=== PATIENT | female | born 1995 | race Caucasian/White ===

== ENCOUNTER 2019-03-26 15:30 | Outpatient (RCR) | payer BC | END 2019-05-25 | disposition still patient (30) | LOC: MKS.ESL.PT | DX: N94.19 Other specified dyspareunia (principal) ==

== ENCOUNTER → 2019-07-21 | Outpatient (CLI) | payer BC | LOC: MC.RAD 14:15 | DX: N60.19 Diffuse cystic mastopathy of unspecified breast (principal) ==

== ENCOUNTER → 2019-07-25 | Outpatient (CLI) | payer BC | LOC: MC.RAD 13:00 | DX: N60.11 Diffuse cystic mastopathy of right breast (principal) ==

== ENCOUNTER → 2020-03-20 | Emergency (ER) | payer BC | LOC: COL.ER 16:24 | DX: R69 Illness, unspecified (principal); Z53.21 Procedure and treatment not carried out due to patient leaving prior to being seen by health care provider ==

== ENCOUNTER 2020-03-21 08:05 | Emergency (ER) | payer BC ==
[~2020-03-21] VITALS: Ht 165.1 cm; Wt 60.0 kg
[2020-03-21 08:11] VITALS: TEMP 99.6
[2020-03-21 09:07] LABS: BASO % 0.4 % (0.0-2.0); EOS % 0.9 % (0-4.0); HEMATOCRIT 39.6 % (37.0-47.0); HEMOGLOBIN 13.4 g/dl (12.5-16.0); LYMPH % 41.5 % (20.0-51.0); MEAN CELL VOLUME 96 fl (80.0-100.0); MEAN CORPUSCULAR HEMOGLOBIN 32 pg (27.0-31.0); MEAN CORPUSCULAR HGB CONC 34 g/dl (33.0-37.0); MEAN PLATELET VOLUME 10.2 fl (7.4-10.4); MONO # 0.3 (0.1-0.6); MONO % 11.8 % (1.7-9.3); PLATELET COUNT 238 K/mm3 (130-400); RED BLOOD COUNT 4.13 M/mm3 (4.10-5.30); REDCELL DISTRIBUTION WIDTH-CV 12.4 % (11.5-14.5)
[2020-03-21 09:20] LABS: ALANINE AMINOTRANSFERASE 20 U/L (4-34); ALBUMIN 4.8 gm/dL (3.5-5.0); ALKALINE PHOSPHATASE 51 U/L (50-136); ANION GAP 9 mmol/L (7-16); AST,SGOT 24 U/L (15-37); BILIRUBIN,TOTAL 0.4 mg/dL (0.0-1.0); BLOOD UREA NITROGEN 16 mg/dL (7-17); CARBON DIOXIDE 26 mmol/L (22-30); CHLORIDE 103 mmol/L (98-107); CREATININE, serum 0.85 (0.52-1.25); GLUCOSE 95 mg/dL (74-106); LIPASE 49 U/L (23-300); POTASSIUM 4.2 mmol/L (3.4-5.0); SODIUM 138 mmol/L (137-145); TOTAL PROTEIN 8.1 gm/dL (6.4-8.2)
[2020-03-21 09:23] LABS: C-REACTIVE PROTEIN < 0.5 mg/dL (0.0-0.9)
[2020-03-21 09:24] LABS: COLLECTION METHOD CLEAN CATCH
[2020-03-21 09:33] LABS: PH 7 (5-8); URINE APPEARANCE Clear; URINE BACTERIA None Seen /hpf; URINE BILIRUBIN Negative (NEGATIVE); URINE BLOOD Negative (NEGATIVE); URINE COLOR Straw; URINE GLUCOSE Negative (NEGATIVE); URINE KETONE Negative (NEGATIVE); URINE LEUKOCYTE ESTERASE Negative (NEGATIVE); URINE NITRATE Negative (NEGATIVE); URINE PROTEIN(semi-quant) Negative (NEGATIVE); URINE RBC 0-2 /hpf; URINE UROBILINOGEN Negative (NEGATIVE)
[2020-03-21 10:45] VITALS: BP 112/67; PULSE 84
== END 2020-03-21 10:48 | disposition home or self-care (01) ==
LOC: COL.ER 08:05
PROVIDERS: Emergency Medicine
DX: U07.1 COVID-19 (principal); Z32.02 Encounter for pregnancy test, result negative; Z91.040 Latex allergy status

== ENCOUNTER → 2020-11-29 | Outpatient (CLI) | payer BC | LOC: MC.RAD 08:53 | DX: D24.1 Benign neoplasm of right breast (principal) ==

== ENCOUNTER → 2020-12-08 | Outpatient (CLI) | payer BC, OTHER | LOC: COL.RAD 09:48 | DX: G43.909 Migraine, unspecified, not intractable, without status migrainosus (principal) ==

== ENCOUNTER → 2022-06-12 | Outpatient (CLI) | payer BC | LOC: DIA.ED 08:38 | DX: O24.419 Gestational diabetes mellitus in pregnancy, unspecified control (principal) | CPT/HCPCS: G0108 ==

== ENCOUNTER 2022-07-08 08:18 | Outpatient (CLI) | payer BC ==
[~2022-07-08] VITALS: Ht 165.1 cm; Wt 79.1 kg
--- NOTE | 2022-07-08 08:30 | NUR ---
Pt arrived on unit via wheelchair with concerns for spotting and cramping last night with episodes of diarrhea. Pt denies any regular contractions, leaking of fluid or vaginal bleeding that requires to wear a pad and reports normal movement. Pt does reports one episode of pink discharge last night and one episode brown discharge this morning while wiping. EFM and toco monitors started. Vital signs WNL. Dr. Desir on unit. FHR tracing and records reviewed. Ok to discharge home if SVE is closed.
[2022-07-08] MEDS ORDERED: PRENATAL (08:44)
[2022-07-08] MEDS ORDERED: ZOLOFT 50MG50 MG PO (08:44)
[2022-07-08] MEDS ORDERED: ZYRTEC5 MG PO (08:45)
[2022-07-08] MEDS ORDERED: NATURAL IRON65 MG (08:45)
--- NOTE | 2022-07-08 09:05 | NUR ---
SVE done by this RN closed/thick/high. Plan for discharge home reviewed with pt and at the bedside. Both verbalized an understanding.
[2022-07-08 09:06] VITALS: BP 114/67; PULSE 75; TEMP 97.9
== END 2022-07-08 09:15 | disposition home or self-care (01) ==
LOC: LDRO 08:18 → LDR 08:30 → LDRO 09:15
DX: O26.853 Spotting complicating pregnancy, third trimester (principal); O62.9 Abnormality of forces of labor, unspecified; Z3A.34 34 weeks gestation of pregnancy
CPT/HCPCS: OP

== ENCOUNTER 2022-07-13 10:43 | Outpatient (CLI) | payer BC ==
[~2022-07-13] VITALS: Ht 165.1 cm; Wt 78.2 kg
[~2022-07-13 10:43] MED LIST: NATURAL IRON65 MG; PRENATAL; ZOLOFT 50MG50 MG PO; ZYRTEC5 MG PO
[2022-07-13 11:30] VITALS: BP 113/67; PULSE 88; TEMP 98.2
--- NOTE | 2022-07-13 11:30 | NUR ---
Pt called this morning and speaks to this RN. Pt complains of leaking fluid in the "middle of the night". Pt states she called the office but has not received a call back. Pt denies leaking any additional fluid since then. Denies UCs. +FM. Pt states she had a similar gush of fluid on Sunday, was seen in the office on Sunday and her water was not broken. Encouraged Pt to put on a peripad and monitor for additional fluid. Pt is certain the fluid was not urine. Pt encouraged to come to the hospital to be examined. Pt verbalizes underatanding. At approximately 1030 Pt's called the unit, spoke to Lucius Salazar, states they were just seen at [facility]. They said she was not ruptured. They are convienced the fluid was not urine and want to come to hospital to be evaluated. Encouraged to come to hospial if concerned. verbalizes understanding. 1050- Pt arrives on unit via wheel chair with complaints of SROM. Pt taken to room by lucius, Pt encouraged to give urine sample and change into gown. 1056- This RN to bedside. Pt into bed. EFM and TOCO on and tracing well. O2 sat monitor on and tracing maternal HR. Pt states that "in the middle of the night" she had a gush of fluid in bed. It was clear and and odorless. Pt retold story from Sunday and this morning. Assessments completed. Pt denies VB, LOF currently, or UCs. +FM per Pt. 1114- Amniotrace test, Pt encouraged to cough hard, negative, no color change. ROM + collected using same technique, collected per packaging instructions. SVE by this RN Closed/thick/high. Discussed plan of care. Questions answered and discussed.
[2022-07-13 11:41] LABS: COLLECTION METHOD CLEAN CATCH
[2022-07-13 11:52] LABS: URINE APPEARANCE Hazy (CLEAR/HAZY); URINE BACTERIA Rare /hpf (NONE SEEN); URINE COLOR Yellow (YELLOW); URINE RBC 0-2 /hpf (0-2)
[2022-07-13 11:53] LABS: PH 6.5 (5.0-8.5); URINE BLOOD Negative (NEGATIVE); URINE GLUCOSE TRACE (NEGATIVE); URINE KETONE Negative (NEGATIVE); URINE NITRATE Negative (NEGATIVE); URINE PROTEIN(semi-quant) Negative (NEGATIVE); URINE UROBILINOGEN 0.2 E.U/dL (0.2-1.0)
[2022-07-13 12:00] VITALS: BP 114/68; PULSE 82
[2022-07-13 12:30] VITALS: BP 99/66; PULSE 83
--- NOTE | 2022-07-13 12:30 | NUR ---
1218- RN to bedside, updated that ROM+ was negative and Urine test was WNL. Dr Clark is on unit and wants to perform a bedside US. Pt up to void. 1224- Dr Clark and this RN to bedside US performed. MD reports that pockets of fluid are present, no measurements taken. talks to Pt and extensively, questions answered. Plan to do US tomorrow in the office. Pt and reassured.
--- NOTE | 2022-07-13 13:00 | NUR ---
1300- EFM and TOCO off. Pt up to change into street clothes. Denies questions at this time. 1310- Discharge paperwork explained. Labor precautions and when to return to hospital discussed. Pt and Spouse deny questions. Pt taken off unit via wheelchair by . states "She walks too slow."
== END 2022-07-13 13:10 | disposition home or self-care (01) ==
LOC: LDRO 10:43
PROVIDERS: Obstetrics & Gynecology
DX: Z34.93 Encounter for supervision of normal pregnancy, unspecified, third trimester (principal); Z3A.35 35 weeks gestation of pregnancy

== ENCOUNTER 2022-07-14 05:46 | Outpatient (CLI) | payer BC ==
[~2022-07-14] VITALS: Ht 172.7 cm; Wt 80.4 kg
[2022-07-14 06:15] VITALS: BP 117/64; PULSE 87; TEMP 98
--- NOTE | 2022-07-14 06:15 | NUR ---
0550: Pt transported onto unit, via wheelchair, accompanied by pt spouse. Pt oriented to LDR3 and changed into exam gown. 0557: Pt on external monitors x2. VS obtained. Pt reports "I am here for leaking of AF. I have a pad there I wore because I was leaking so much." Pt denies vaginal bleeding and reports "have not felt much ctx. I also have not felt my baby in a while now." POC discussed with pt. Amnioswab conducted, negative for AF. Amnioswab conducted on pt pad, negative for AF. ROMPlus conducted and sent down to laboratory. 0604: SVE, with pt consent and explanation, C/T/H. 0633: This nurse notified Dr. Clark, via phonecall, of pt progress. See physician notification for further information.
[2022-07-14 06:30] VITALS: BP 105/64; PULSE 67
[2022-07-14 07:00] VITALS: BP 109/71; PULSE 82
[2022-07-14 07:30] VITALS: BP 110/66; PULSE 78
[2022-07-14 08:09] VITALS: BP 113/65; PULSE 68
--- NOTE | 2022-07-14 08:19 | NUR ---
0800 - Dr. Clark to bedside. Speculum exam done. Amnitrace swab negative. Swab done and sample placed on microscope slide, taken to lab by Dr. Clark. Pt repositioned for comfort. 0817 - Ultrasound to bedside for ordered growth sono and BPP
--- NOTE | 2022-07-14 08:55 | NUR ---
Per Dr. Clark, pt told him the electronic plotting system operator said fluid looked good, so pt may go home. He will follow up with her later.
[2022-07-14 09:04] VITALS: BP 115/66; PULSE 88; TEMP 98.2
== END 2022-07-14 09:15 | disposition home or self-care (01) ==
LOC: LDRO 05:46
DX: O42.913 Preterm premature rupture of membranes, unspecified as to length of time between rupture and onset of labor, third trimester (principal); Z3A.35 35 weeks gestation of pregnancy

== ENCOUNTER 2022-07-28 07:04 | Outpatient (CLI) | payer BC ==
[~2022-07-28] VITALS: Ht 165.1 cm; Wt 81.4 kg
[2022-07-28] MEDS ORDERED: SINGULAIR 110 MG/TAB PO (07:34)
[2022-07-28 07:35] VITALS: BP 121/66; PULSE 67; TEMP 98.4
[2022-07-28] MEDS ORDERED: METROGEL-VAGINA0.75% VG (07:35)
[2022-07-28 07:52] VITALS: TEMP 98.4
--- NOTE | 2022-07-28 08:18 | NUR ---
DR CORADO AND DR JOHN HERE TO PERFORM AN EXTERNAL VERSION. TERBUTAINE GIVEN AT 0805. VERSION SUCCESSFUL CONFIRMED WITH ULTRASOUND. PATIENT TOLERATED WELL. PATIENT IN LEFT WEDGE, MONITORS ON, VSS. T'S 120'S. WILL CONTINUE TO MONITOR.
[2022-07-28 09:05] VITALS: BP 133/77; PULSE 79
[2022-07-28 09:35] VITALS: PULSE 88
[2022-07-28 10:15] VITALS: PULSE 84
== END 2022-07-28 10:30 | disposition home or self-care (01) ==
LOC: LDRO 07:04 → LDR 07:06 → LDRO 09:40
DX: O26.893 Other specified pregnancy related conditions, third trimester (principal); Z3A.37 37 weeks gestation of pregnancy
CPT/HCPCS: OP; J3105

== ENCOUNTER 2022-07-29 15:14 | Outpatient (CLI) | payer BC ==
[~2022-07-29] VITALS: Ht 165.1 cm; Wt 81.9 kg
[~2022-07-29 15:14] MED LIST changes: +METROGEL-VAGINA0.75% VG; +SINGULAIR 110 MG/TAB PO
--- NOTE | 2022-07-29 15:24 | NUR ---
Pt arrived on unit via wheelchair escorted by and with concerns for contractions. Pt reports she has been having contractions since yesterday after an external version was done but they care getting more consistent and stronger the last couple hours. Pt denies any leaking of fluid or vaginal bleeding and report normal movement. Pt is also concerned that baby has flipped to breech position. EFM and toco monitors started. Vital signs WNL. SVE by this RN FT//3 and in a posterior position. Dr. Clark notified. See physician notification for details.
[2022-07-29 16:00] VITALS: BP 119/62; PULSE 75; TEMP 97.8
--- NOTE | 2022-07-29 16:40 | NUR ---
SVE done by this RN with no change. Dr. Clark notified. See physician notification for details.
[2022-07-29 16:42] VITALS: BP 129/79; PULSE 69
== END 2022-07-29 16:55 | disposition home or self-care (01) ==
LOC: LDRO 15:14
DX: Z34.93 Encounter for supervision of normal pregnancy, unspecified, third trimester (principal); Z3A.37 37 weeks gestation of pregnancy

== ENCOUNTER 2022-08-10 23:57 | Inpatient (IN) | payer BC ==
[~2022-08-10] VITALS: Ht 165.1 cm; Wt 84.5 kg
[2022-08-11] VITALS (77 sets, daily range): BP systolic 98–165; BP diastolic 53–93; PULSE 56–117; TEMP 97.6–98.6
[2022-08-11 01:51] LABS: BASO % 0.3 % (0.0-2.0); EOS # 0.1 K/mm3 (0.0-0.7); EOS % 1.2 % (0.0-4.0); GRAN # 4.9 K/mm3 (1.4-6.5); GRAN % 66.8 % (42.2-75.2); HEMOGLOBIN 11.4 g/dl (12.5-16.0); LYMPH # 1.7 K/mm3 (1.2-3.4); LYMPH % 22.6 % (20.0-51.0); MEAN CELL VOLUME 98 fl (80.0-100.0); MEAN CORPUSCULAR HEMOGLOBIN 34 pg (27-31); MEAN CORPUSCULAR HGB CONC 34 g/dl (33.0-37.0); MEAN PLATELET VOLUME 11.2 fl (7.4-10.4); MONO # 0.6 K/mm3 (0.1-0.6); MONO % 8.6 % (1.7-9.3); PLATELET COUNT 251 K/mm3 (130-400); REDCELL DISTRIBUTION WIDTH-CV 13.7 % (11.5-14.5)
[2022-08-11 01:59] LABS: HEMATOCRIT 33.3 % (37.0-47.0)
--- NOTE | 2022-08-11 02:40 | NUR ---
Tense, crying with contractons, requesting epidural. SVE as noted.
--- NOTE | 2022-08-11 02:40 | NUR ---
Discussed with pt that order for epidural is not contingent on her being 1 cm. Pt tearful, tense. Explained to pt that there is an order for IV pain medicine that can be given now. Pt and sppouse agree.
--- NOTE | 2022-08-11 02:56 | NUR ---
Stadol 1 mg slow IV push for pain.
--- NOTE | 2022-08-11 04:20 | NUR ---
Tense with contractions. 0430 Up to bathroom with assistance. attentive at bedside. 0440 Continues in bathroom. 0444 Back to bed. SVE 1-2/80%.
--- NOTE | 2022-08-11 04:50 | NUR ---
Anesthesia notified of request for epidural.
[2022-08-11] MEDS ORDERED: PROBIOTIC BLEN1 EACH PO (05:00)
[2022-08-11] MEDS ORDERED: CLEOCIN HCL300 MG PO (05:00)
--- NOTE | 2022-08-11 05:30 | NUR ---
Tony RETAIL STOCKER into room for epidural placement. Pt to sit on edge of bed, lifts pt to sitting position. FHT's not tracing while pt sitting on edge of bed. PT tense, crying difficult to position. 0551 Epid test dose see anesthesia record.
--- NOTE | 2022-08-11 06:03 | NUR ---
0605 FHT's to 80's SVE to WL, 0607 TFHT's continue 90's, WR, FSE placed. 0610 Pit off, to knee chest, O2 . SVE unchanged. FHT's continue 90's. 0613 FHT's to baseline 120's. Decel duration onset to recovery 11 min.
--- NOTE | 2022-08-11 08:30 | NUR ---
0815 - MD MICKIE AT BEDSIDE. PLAN OF CARE REVIEWED WITH PATIENT. 0818 - SVE PERFORMED BY . /-2. 08 - MD REQUESTS PITOCIN IS RESTARTED. PITOCIN STARTED AT 2. 0822 - PATIENT REPOSITIONED TO RIGHT LATERAL WITH LEFT LEG IN STIRRUP. 0828 - LATE DECEL NOTED WITH CONTRACTION. PATIENT REPOSITIONED TO LEFT LATERAL WITH RIGHT LEG IN STIRRUP. 0831 - FHR RETURNS TO BASELINE. CARE ONGOING.
--- NOTE | 2022-08-11 11:15 | NUR ---
1104 - MD MICKIE AT BEDSIDE. 1105 - PERLA PERFORMED. . PLAN OF CARE REVIEWED. CARE ONGOING.
--- NOTE | 2022-08-11 12:45 | NUR ---
1228 - PATIENT REPORTS NAUSEA. 1231 - PATIENT VOMITS X1. 1232 - ZOFRAN GIVEN FOR NAUSEA AND VOMITING SEE MAR. 1235 - PATIENT REPORTS RELIEF FROM NAUSEA.
--- NOTE | 2022-08-11 13:15 | NUR ---
1305 - MD MICKIE AT BEDSIDE. 1306 - SVE PERFORMED BY . . 1307 - PATIENT REPOSITIONED. CARE ONGOING.
--- NOTE | 2022-08-11 14:30 | NUR ---
1430 - Patient reports feeling pressure in her rectum. 1440 - SVE performed by this RN. Complete/+1. Patient repositioned. Pericare performed. 1450 - Pushing instructions reviewed with patient. Julio C d/c. 1455 - Patient begins pushing with contractions. Fair maternal effort. Care ongoing.
--- NOTE | 2022-08-11 15:15 | NUR ---
1515 - Patient continues pushing with contractions. Fair maternal effort. 1530 - Patient continues pushing with contractions. Care ongoing.
--- NOTE | 2022-08-11 15:33 | NUR ---
1533 - MD Eduardo calls to inform RN that MD Diann is to cover patient. Care ongoing.
--- NOTE | 2022-08-11 15:45 | NUR ---
1545 - Patient continues pushing with contractions. 1600 - Patient continues pushing with contractions. Care ongoing.
--- NOTE | 2022-08-11 16:20 | NUR ---
1620 - Patient takes break from pushing. 1630 - Patient resting. Care ongoing.
--- NOTE | 2022-08-11 16:22 | NUR ---
1622 - MD Diann called with update on patient. informed of patient pushing for last 1.5 hours with little progress. Recurrent late decels noted with pushing. orders RN to take a break from pushing. Resume after 30 minutes if FHR is category I. Care ongoing.
--- NOTE | 2022-08-11 17:02 | NUR ---
1700 - Patient instructed on rope pull pushing method. 1702 - Patient begins pushing with contractions using rope pull method. 1715 - Patient continues pushing with contractions using rope pull method. 1730 - Patient instructed on pushing in closed knees and begins pushing with contractions again. Good maternal effort. Care ongoing.
--- NOTE | 2022-08-11 17:45 | NUR ---
1745 - Patient continues pushing with contractions. Epidural stopped to allow patient to feel pressure to assist with pushing effort during contractions. 1803 - Patient continues pushing with contractions. MD Diann called with update on patient status. MD given report on pushing methods used, maternal effort and station. also notified of pushing with contractions for 2.5 hours. states is on his way in to assess. Care ongoing.
--- NOTE | 2022-08-11 18:15 | NUR ---
181 - Patient reports pain from contractions. Epidural restarted. MD Diann at bedside. Plan of care reviewed with patient and spouse. Plan for vacuum assisted delivery discussed with patient by MD and patient agreeable to plan. 1817 - JC Mejía requested to bedside for epidural management. 1818 - JC Mejía at bedside. Care ongoing.
--- NOTE | 2022-08-11 18:30 | NUR ---
Eric MANUAL LATHE OPERATOR at bedside for additional epidural dose. at bedside, vacuum delivery explained at this time. Pt prepped for delivery waiting for additional epidural dose to kick in. Provider remains at bedside. 1841: Provider provided straight catherization. 1843: Vacuum placed by . Pressure to green and gentle traction applied by provider while pt pushes with contractions. 1844: Pressure released. 1845: Pressure applied to green by and gentle traction applied while pt pushes with contractions. 1846: Pressure released. 1847: Pressure applied to green by and gentle traction applied while pt pushes with contractions. 1848: Pressure released. 1849: Pressure applied to green by and gentle traction applied while pt pushes with contractions. 1850: Pressure released. 1851: Pressure applied to green by and gentle traction applied while pt pushes with contractions. 1852: Pressure released. 1854: Pressure applied to green by and gentle traction applies while pt pushes with contractions. 1855: Pressure released. 1856: Pressure applied to green by and gentle traction applied while pt pushes with contraction. 1856: Vacuum assisted delivery of 's head. Vacuum removed and pt instructed to continue to push to delivery 's body. 1857: Pt pushes twice with spontaneous delivery of infant's body by . Infant dried and stimulated by provider. Pitocin turned off per protocol. Cord clamped X2 and cut by FOB. Infant to mothers chest where care of assummed by Ronnie PAULA. 190: Spontaneous delivery of intact placenta by . Pitocin restarted at 333mu/hr per protocol. Fundal message completed. Second degree laceration repaired by . Pericare provided and pads changed. Ice pack to perineum. Plan of care and safety precautions explained to pt and spouse who verbalize their understanding. Call light within reach.
--- NOTE | 2022-08-11 18:30 | NUR ---
1830 - MD Eduardo updated on patient status as requested. MD given report of MD Diann at bedside for delivery with vacuum assist and patient continuing to pushing with contractions for 2.5 hours. Care ongoing.
--- NOTE | 2022-08-11 21:45 | NUR ---
Pt ambulatory to bathroom, standby assist. Pt unable to void and felt like she was going to pass out. Pt assisted to wheelchair and wheeled to pp room. Pt and spouse oriented to room and call light within reach. Encouraged pt drink fluids and call out for assistance to void.
[2022-08-12 00:30] VITALS: BP 110/65; PULSE 87; TEMP 98
[2022-08-12 03:30] VITALS: BP 120/69; PULSE 72; TEMP 98.1
[2022-08-12 07:29] VITALS: BP 134/74; PULSE 87; TEMP 97.4
--- NOTE | 2022-08-12 09:06 | NUR ---
0800 MOTHER STATES HURTS ON THE LEFT SIDE. THIS RN ENCOURAGES MOTHER TO CALL FOR HELP AT NEXT FEEDING TO DISCUSS LATCH AND FEEDING POSITIONS. MOTHER AGREES.
--- NOTE | 2022-08-12 10:24 | NUR ---
1015 MOTHER CALLS OUT FOR HELP IN THE RESTROOM. THIS RN HELPING ANOTHER PATIENT AT THIS TIME. LALIT, RN ATTENDS TO THIS PATIENTS NEEDS. MOTHER VOIDED 550 MLS AND STATES THAT SHE HAS BEEN ATTEMPTING TO GET BABY TO EAT FOR THE LAST HOUR. LALIT ENCOURAGES MOTHER TO ASK FOR HELP WITH . HEARING SCREEN NOW ASKING TO TEST INFANT. MOTHER AGREES. THIS RN WILL OFFER BF HELP WHEN HEARING SCREEN IS DONE.
--- NOTE | 2022-08-12 10:49 | NUR ---
1034 MOTHER CALLS OUT FOR PAIN MEDICATION. THIS RN DISCUSSED MOTHER AND INFANTS ATTEMPT AT FOR AN HOUR. MOTHER ASKS WHEN SHE NEEDS TO START PUMPING AND IF NEED TO GIVE BABY A BOTTLE. THIS RN EDUCATES THAT AT THIS TIME IT IS NOT MEDICALLY NECESSARY FOR INFANT TO HAVE A BOTTLE. ATTEMPTED FEEDING AT 0900, LAST ATE AT 0600 FOR 35 MINUTES PER MOM REPORT, AND LESS THAN 24 HOURS OLD. INFANT WITH PRIOR FEEDINGS THROUGHOUT THE NIGHT. ATTEMPTS 2-3 HOURS WITH NO SIGNS OF HYPOGLYCEMIA IS OF NO CONCERN AT THIS MOMENT. RN EDUCATED THAT IT IS THE PARENTS DECISION IF THEY WOULD LIKE BABY TO HAVE A BOTTLE. THIS RN DISCUSSED WHEN USE OF PUMP WOULD BE BENEFICIAL. THIS RN ENCOURAGES MOTHER TO LET THIS RN HELP WITH NEXT FEEDING TO ASSESS TECHNIQUE AND LATCH BEFORE INTRODUCING THE PUMP. THIS RN HAS NOT HAD THE OPPORTUNITY TO VISUALIZE A ATTEMPT YET WITH THIS MOTHER AND . THIS RN AND MOTHER AGREE TO LET THE PERCOCET START WORKING, INSEAM TRIMMING MACHINE OPERATOR WILL BE BACK SOON AND AFTER THAT WE CAN ATTEMPT TO FEED THE BABY. RN WILL BRING TEACHING VIDEOS WELL VIDEO AND HANDOUTS TO PARENTS WHEN TIME ALLOWS.
--- NOTE | 2022-08-12 12:12 | NUR ---
1200 MOTHER ASKS THIS RN TO HELP WITH . PILLOWS PLACED, PLACED IN CROSS CRADLE, MOTHER USING HER LEFT HAND IN C SHAPE AROUND BREAST, RN SUPPORTING HEAD AND SHOULDERS AND ASSISTS INFANT TO LATCH. MOTHER STATES THIS LATCH FEELS MUCH BETTER. RN EDUCATES MOTHER ON AMOUNT OF [place]OLA FOR BABY TO TAKE IN, HOW LIPS SHOULD BE SPLAYED UP AND DOWN, SHOWING MOTHER HOW TO IDENTIFY JAW MOVEMENT AND LISTEN FOR SUCK/SWALLOW. EDUCATION PROVIDED FOR GOAL DURATION OF 10 MINUTES PER SIDE, ATTEMPT TO BURP AFTER FIRST SIDE BEFORE RESUMING SECOND SIDE. RN INSTRUCTED MOTHER TO CONINUE NURSING ON RIGHT SIDE, BURP , AND IF NEEDED HELP LATCHING ON RIGHT SIDE TO CALL OUT. MOTHER VERBALLY AGREES AND THANKS THIS RN FOR HELPING.
[2022-08-12 12:30] VITALS: BP 138/61; PULSE 85; TEMP 98.5
[2022-08-12 19:45] VITALS: BP 122/76; PULSE 93; TEMP 98.1
[2022-08-13] MEDS ORDERED: IBU800 M1 PO (09:16)
[2022-08-13] MEDS ORDERED: PERCOCET 325 MG1 TA2 PO (09:17)
[2022-08-13 09:42] VITALS: BP 120/71; PULSE 77; TEMP 97.5
== END 2022-08-13 15:15 | disposition home or self-care (01) | DRG 807 ==
LOC: LDRO 23:57 → LDR 08-11 00:49 → OB 08-11 23:18
PROVIDERS: ADMIT Obstetrics & Gynecology
PROC: 10D07Z6 Extraction of Products of Conception, Vacuum, Via Natural or Artificial Opening (ICD-10-PCS; principal; 2022-08-11)
DX: O24.420 Gestational diabetes mellitus in childbirth, diet controlled (principal); Z37.0 Single live birth; O70.1 Second degree perineal laceration during delivery; O77.0 Labor and delivery complicated by meconium in amniotic fluid; O99.344 Other mental disorders complicating childbirth; F32.A Depression, unspecified; F41.9 Anxiety disorder, unspecified; F42.9 Obsessive-compulsive disorder, unspecified; O99.02 Anemia complicating childbirth; D64.9 Anemia, unspecified; O75.81 Maternal exhaustion complicating labor and delivery; Z3A.39 39 weeks gestation of pregnancy
CPT/HCPCS: J0595; J2405; J2590; J2795; J7120

== ENCOUNTER → 2024-03-03 | Outpatient (CLI) | payer BC ==
[~2024-03-03] MED LIST changes: +CLEOCIN HCL300 MG PO; +IBU800 M1 PO; +PERCOCET 325 MG1 TA2 PO; +PROBIOTIC BLEN1 EACH PO
== END ==
LOC: COL.RAD 16:06
DX: M51.360 Other intervertebral disc degeneration, lumbar region with discogenic back pain only (principal)